=== PATIENT | male | born 1940 | race Hispanic/Latino ===

== ENCOUNTER 2019-05-29 16:51 | Observation (INO) | payer OTHER ==
[~2019-05-29] VITALS: Ht 172.7 cm; Wt 83.9 kg
[~2019-05-29 16:51] MED LIST: ALENDRONATE SOD70 MG PO; DOXAZOSIN MESYLA2 MG PO; FINASTERIDE5 MG PO; FUROSEMIDE20 MG PO; POTASSIUM CHLO20 ME1 PO; PRAVASTATIN SOD40 MG PO; PREDNISONE20 MG PO
[2019-05-29 17:32] LABS: BASOPHILS % 0.1 % (0.0-1.0); HEMATOCRIT 41.7 % (38.2-49.6); HEMOGLOBIN 13.9 g/dL (14.0-18.0); LYMPHOCYTES # (AUTO) 0.7 (1.0-3.2); LYMPHOCYTES % 8.8 % (18.0-39.1); MEAN CORPUSCULAR HEMOGLOBIN 33.8 pg (28-32); MEAN CORPUSCULAR HGB CONC 33.3 g/dL (31-35); MEAN CORPUSCULAR VOLUME 101.5 fL (81-99); MONOCYTES # (AUTO) 0.4 (0.2-0.8); NEUTROPHILS # (AUTO) 6.6 (2.1-6.9); NEUTROPHILS % 84.8 % (38.7-80.0); RED BLOOD COUNT 4.11 x10e6/uL (4.3-5.7); RED CELL DISTRIBUTION WIDTH 14.6 % (11.7-14.4)
[2019-05-29 17:34] LABS: PLATELET COUNT 64 x10e3/uL (140-360)
[2019-05-29 17:52] LABS: ALANINE AMINOTRANSFERASE 24 IU/L (0-55); ALBUMIN 3.7 g/dL (3.5-5.0); ALBUMIN/GLOBULIN RATIO 1.3 (0.8-2.0); ALKALINE PHOSPHATASE 43 IU/L (40-150); ANION GAP 14.5 mmol/L (8-16); BLOOD UREA NITROGEN 23 mg/dL (7-26); BUN/CREATININE RATIO 27 (6-25); CALCIUM 9.8 mg/dL (8.4-10.2); CARBON DIOXIDE 28 mmol/L (22-29); CHLORIDE 103 mmol/L (98-107); CREATINE KINASE 37 IU/L (30-200); CREATININE, SERUM 0.84 mg/dL (0.72-1.25); EST GLOMERULAR FILTRATION RATE > 60 ML/MIN (60-); GLUCOSE 119 mg/dL (74-118); MAGNESIUM 2.1 MG/DL (1.3-2.1); POTASSIUM 4.5 mmol/L (3.5-5.1); SODIUM 141 mmol/L (136-145)
--- NOTE | 2019-05-29 18:13 | Diagnostic Imaging Report ---
EXAMINATION: CHEST SINGLE (PORTABLE) INDICATION: Extremely confused. COMPARISON: None FINDINGS: TUBES and LINES: None. LUNGS: Lungs are not well inflated. There are bibasilar atelectasis left greater than right. There is no evidence of pneumonia or pulmonary edema. PLEURA: No pleural effusion or pneumothorax. HEART AND MEDIASTINUM: The cardiomediastinal silhouette is unremarkable. BONES AND SOFT TISSUES: No acute osseous lesion. Soft tissues are unremarkable. UPPER ABDOMEN: No free air under the diaphragm. IMPRESSION: Bibasilar atelectasis Signed by: Dr. Cassandra Muñoz M.D. on 05/29/2019 6:10 PM
--- NOTE | 2019-05-29 18:16 | Diagnostic Imaging Report ---
History: Confusion Comparison studies: None Technique: Axial images were obtained from the skull base to the vertex. Coronal and sagittal images reconstructed from the axial data. Dose modulation, iterative reconstruction, and/or weight based adjustment of the mA/kV was utilized to reduce the radiation dose to as low as reasonably achievable. Intravenous contrast: None Findings: Scalp/skull: No abnormalities. Extra-axial spaces: No masses. No fluid collections. Brain sulci: Moderately prominent. Ventricles: Moderate compensatory dilatation. No hydrocephalus. Parenchyma: Ill-defined, confluent hypodensities in the supratentorial white matter are small vessel ischemic changes. No masses, hemorrhage, acute or chronic cortical vascular insults. Sellar/suprasellar region: No abnormalities. Craniocervical junction: Patent foramen magnum. No Chiari one malformation. Incidental findings: Atherosclerotic calcifications in the carotid siphons and left vertebral artery. Single punctate dystrophic right parietal calcification without surrounding edema (supra marginal gyrus) Impression: No acute abnormalities. Chronic findings: 1. Moderate generalized volume loss. 2. Moderate supratentorial white matter small vessel ischemic changes. 3. Incidental single right parietal dystrophic calcification Signed by: Dr. Rodriguez Abrams M.D. on 05/29/2019 6:12 PM
[2019-05-29 18:30] LABS: BILIRUBIN,URINE NEGATIVE (NEGATIVE); CLARITY,URINE SL CLOUDY (CLEAR); COLOR,URINE YELLOW (YELLOW); KETONES,URINE NEGATIVE (NEGATIVE); LEUKOCYTE ESTERASE ,URINE NEGATIVE (NEGATIVE); NITRITE,URINE NEGATIVE (NEGATIVE); PROTEIN,URINE DIPSTICK NEGATIVE (NEGATIVE); URINE UROBILINOGEN 0.2 mg/dL (0.2 - 1)
[2019-05-29 18:44] LABS: BACTERIA,URINE FEW /HPF
[2019-05-29 18:45] LABS: MUCUS,URINE FEW (RARE)
--- OUTSIDE RECORDS SUMMARY | 2019-05-29 18:57 | XMS REPORT ---
[facility] Address Unknown Phone Unavailable Care Team Providers Care Finance Broker Name Role Phone LANE AMIN Unavailable Unavailable Problems This patient has no known problems. Allergies, Adverse Reactions, Alerts This patient has no known allergies or adverse reactions. Medications This patient has no known medications. Results Test Description Test Time Test Comments Text Results Atomic Results Result Comments CT BRAIN WO 2019-05-29 18:10:00 [place] [address] Patient Name: MARY YOON MR #: [id number] : 1940 Age/Sex: 78/M Req #: [id number] Adm Physician: Ordered by: PAVEL WOOD SOCIAL SERVICES TECHNICIAN Report #: [id number] Location: ER Room/Bed: Procedure: [id number] CT/CT BRAIN WO Exam Date: 05/29/19 Exam Time: 1755 REPORT STATUS: Signed History: Confusion Comparison studies: None Techn ique: Axial images were obtained from the skull base to the vertex. Coronal and sagittal images reconstructed from the axial data. Dose modulation, iterative reconstruction, and/or weight based adjustment of the mA/kV was utilized to reduce the radiation dose to as low as reasonably achievable. Intravenous contrast: None Findings: Scalp/skull: No abnormalities. Extra-axial spaces: No masses. No fluid collections. Brain sulci: Moderately prominent. Ventricles: Moderate compensatory dilatation. No hydrocephalus. Parenchyma: Ill-defined, confluent hyp odensities in the supratentorial white matter are small vessel ischemic changes. No masses, hemorrhage, acute or chronic cortical vascular insults. Sellar/suprasellar region: No abnormalities. Craniocervical junction: Patent foramen magnum. No Chiari one malformation. Incidental findings: Atherosclerotic calcifications in the carotid siphons and left vertebral artery. Single punctate dystrophic right parietal calcification without surrounding edema (supra marginal gyrus) Impression: No acute abnormalities. Chronic findings: 1. Moderate generalized volume loss. 2. Moderate supratentorial white matter small vessel ischemic changes. 3. Incidental single right parietal dystrophic calcification Signed by: Dr. Rodriguez Abrams M.D. on 05/29/2019 6:12 PM Dictated By: RODRIGUEZ COLE MD, MD 11 Transcribed By: GENNY on 05/29/191811 COPY TO: PAVEL WOOD NP CHEST SINGLE (PORTABLE) 2019-05-29 18:08:00 [place] [address] Patient Name: MARY YOON MR #: [id number] : 1940 Age/Sex: 78/M Req #: [id number] Adm Physician: Ordered by: PAVEL WOOD NP Report #: [id number] Location: ER Room/Bed: Procedure: [id number] DX/CHEST SINGLE (PORTABLE) Exam Date: 05/29/19 Exam Time: 1750 REPORT STATUS: Signed EXAMINATION: CHEST SINGLE (PORTABLE) YEYO CATION: Extremely confused. COMPARISON: None FINDINGS: TUBES and LINES: None. LUNGS: Lungs are not well inflated. There are bibasilar atelectasis left greater than right. There is no evidence of pneumonia or pulmonary edema. PLEURA: No pleural effusion or pneumothorax. HEART AND MEDIASTINUM: The cardiomediastinal silhouette is unremarkable. BONES AND SOFT TISSUES: No acute osseous lesion. Soft tissues are unremarkable. UPPER ABDOMEN: No free air under the diaphragm. IMPRESSION: Bibasilar atelectasis Signed by: Dr. Cassandra Mendez M.D. on 05/29/2019 6:10 PM Dictated By: LUCIA MENDEZ MD, MD 09 Transcribed By: GENNY on 05/29/191809 COPY TO: PAVEL WOOD NP
[2019-05-29] MEDS ORDERED: ASPIRIN 81 MG CHEW TAB PO ONE (19:15)
[2019-05-29 20:04] VITALS: BP 172/76
--- NOTE | 2019-05-29 20:23 | NUR ---
Message left on Dr. Flowers's voicemail regarding consult.
[2019-05-29 21:00] VITALS: BP 172/76
[2019-05-29] MEDS: DOXAZOSIN MESYLATE 2 MG TAB PO SCH (21:30)
[2019-05-30] VITALS (9 sets, daily range): BP systolic 122–185; BP diastolic 62–80
[2019-05-30] MEDS: LABETALOL HCL 5 MG/ML 20ML VIAL IV PRN ×2 (00:22→08:54)
[2019-05-30 04:37] LABS: CREATINE KINASE MB 1.3 ng/mL (0-5.0)
--- NOTE | 2019-05-30 07:00 | NUR ---
Walking rounds and report given to oncoming nurse. Call tillman within reach.
[2019-05-30] MEDS ORDERED: POTASSIUM CHLORIDE 20 MEQ TAB CR PO SCH (09:00)
[2019-05-30] MEDS: FUROSEMIDE 20 MG TAB PO SCH ×2 (10:29→16:05)
--- NOTE | 2019-05-30 13:03 | Diagnostic Imaging Report ---
EXAMINATION: MRI of the brain without contrast. HISTORY: Severe confusion, alteration of consciousness. COMPARISON: Head CT 05/29/2019 TECHNIQUE: Sagittal T2; axial DWI, T2, FLAIR, T1-IR, T2 gradient echo; coronal FLAIR. IMAGE QUALITY: Adequate. FINDINGS: Parenchyma: 1. Persistent moderate confluent periventricular and yu radiata white matter T2 and FLAIR hyperintense foci, most likely nonspecific chronic microvascular ischemic changes. 2. Small chronic lacunar infarct in the right thalamocapsular region. 3. No mass, hemorrhage, acute or chronic cortical infarct. Skull: Unremarkable. Vessels: Expected flow voids present in the major arteries and dural sinuses. Extra-axial spaces: No abnormal signal intensity or mass effect. Brain volume: Mild to moderate generalized brain volume loss without disproportionate lobar atrophy. Ventricles: No hydrocephalus or displacement. Foramen magnum: Unremarkable. Sella: Unremarkable. Paranasal / mastoid sinuses: Minimal partial opacification of the left mastoid air cells, likely minimal effusion, otherwise clear bilaterally. IMPRESSION: 1. No acute infarcts. 2. Stable moderate chronic microvascular ischemic changes compared to head CT of 05/29/2019. Signed by: Dr. Roberta Small M.D. on 05/30/2019 1:00 PM
[2019-05-30 14:01] LABS: CREATINE KINASE MB 1.6 ng/mL (0-5.0)
--- NOTE | 2019-05-30 15:42 | NUR ---
Recvd patient from OBS, Alert with no distress, bed in lowest position, call light in reach, bed alarm ON, [employer] bed side
--- NOTE | 2019-05-30 19:45 | NUR ---
PATIENT RECEIVED. PATIENT IS AAOX3. RESP EVEN AND UNLABORED. NO ACUTE DISTRESS NOTICED. PATIENT DENIES OF ANY PAIN OR DISCOMFORT. FAMILY AT BED SIDE. CALL LIGHT WITHIN REACH. INSTRUCT TO CALL FOR ASSISTANCE. BED LOW/LOCKED. BED ALARM IS ON. CONTINUE TO MONITOR CLOSELY
[2019-05-30 19:59] LABS: FOLATE 18.1 ng/mL (7.0-15.4)
[2019-05-30] MEDS: DOXAZOSIN MESYLATE 2 MG TAB PO SCH (20:09)
[2019-05-30] MEDS ORDERED: PRAVASTATIN 20 MG TAB PO SCH (21:00)
[2019-05-30] MEDS ORDERED: HYDRALAZINE HCL 25 MG TAB PO PRN (21:00)
[2019-05-30] MEDS ORDERED: FINASTERIDE 5 MG TAB PO SCH (21:00)
[2019-05-30] MEDS ORDERED: AMLODIPINE BESYLATE 5 MG TAB PO ONE (21:45)
--- NOTE | 2019-05-31 01:28 | Consultation ---
DATE OF CONSULTATION: 05/30/2019 Neurology Consult Note HISTORY OF PRESENT ILLNESS: Mr. Clark is an 78-year-old right-hand dominant man with past medical history significant for hypertension, hyperlipidemia, prior history of diabetes mellitus, admitted to [facility] under observation status on May 29, 2019, for confusion. The patient's family members, who are at bedside and provided the majority of the medical history, report worsening of the patient's baseline confusion beginning on Monday, May 27, 2019, According to the patient's , Mr. Clark was always oriented to self, place, and family members (i.e. his ). He has not been oriented to time, but this is chronic. When asked to give examples of the patient's confusion, the patient's reports at one point over the preceding 48 hours, the patient went to the restroom during the night. After he had been gone for some time, the patient's went to the restroom to look on Mr. Clark. Mr. Clark was sitting on the toilet in the dark. He had finished using the restroom, but did not get up to come back to bed. Another time, Mr. Clark was told by his to go shave prior to his appointment with the dentist. Mr. Clark agreed he needed to shave, but never did so. The patient's family members do report Mr. Clark has become more forgetful. This has progressively worsened over the past 1-2 years. In the recent past, the patient became significantly confused and poorly responsive when he developed a febrile illness. Once this illness was treated, the patient did return to his neurological baseline. Mr. Clark's family does not report recent signs or symptoms of illness. Specifically, they do not report fevers, chills, shortness of breath, productive cough, abdominal pain, nausea, vomiting, diarrhea, burning with urination, urinary frequency, or urinary urgency. There have been no recent changes in the patient's medications. Mr. Clark does not consume alcohol. Of note, the patient's reports Mr. Clark is significantly improved over the last 24 hours. At present, he is at his neurological baseline. REVIEW OF SYSTEMS: Joint pain, confusion, recent fall. Otherwise, a 12-point review of systems is negative. PAST MEDICAL HISTORY: Hypertension, hyperlipidemia, prior history of diabetes mellitus, prior history of COPD, prior history of asthma, osteoarthritis, osteoporosis, benign prostatic hypertrophy, thrombocytopenia. PAST SURGICAL HISTORY: Partial colectomy for a benign tumor/appendectomy, repair of a deviated septum, bilateral cataract removal, procedure for varicose veins. PAST HOSPITALIZATIONS: Surgeries/procedures as listed. FAMILY MEDICAL HISTORY: Coronary artery disease. The patient has a brother who is from metastatic throat cancer. A sister is alive, but is being treated for eye cancer. SOCIAL HISTORY: Mr. Clark is . He is retired. The patient does report a prior history of tobacco use, but quit smoking cigarettes approximately 40+ years ago. As a young man, Mr. Clark was known to drink heavily, but he has not consumed alcohol in approximately 40+ years. There is no reported current or prior recreational drug use. HOME MEDICATIONS: Alendronate 70 mg by mouth as needed, doxazosin 1 mg by mouth at bedtime daily, finasteride 5 mg by mouth at bedtime daily, furosemide 20 mg by mouth twice daily, potassium chloride 20 mEq by mouth daily, pravastatin 40 mg by mouth at bedtime daily, prednisone 20 mg by mouth daily. HOSPITAL MEDICATIONS: Doxazosin, finasteride, furosemide, labetalol, pravastatin, potassium chloride. ALLERGIES: NO KNOWN DRUG ALLERGIES. NO KNOWN FOOD ALLERGIES. NO KNOWN ALLERGY TO LATEX. THE PATIENT DOES REPORT A SENSITIVITY TO ADHESIVE. NO KNOWN ALLERGIES TO IODINE OR OTHER CONTRAST MATERIALS. PHYSICAL EXAMINATION: VITAL SIGNS: Height 68 inches, weight 185 pounds, BMI 28.1 kg/m2, blood pressure 150/70 mmHg, pulse 68 beats per minute, respiratory rate 20 breaths per minute, and oxygen saturation 98% on room air. GENERAL: The patient is awake and alert, does not appear distressed. Overweight. HEENT: Normocephalic, atraumatic. Pupils are surgical. NECK: Supple. No appreciable thyromegaly. No appreciable carotid bruits. CARDIOVASCULAR: S1, S2, regular rate and rhythm. No murmurs, rubs, or gallops. RESPIRATORY: Clear to auscultation bilaterally. No wheezes, rhonchi, or rales. EXTREMITIES: The skin is warm and dry. No clubbing, cyanosis, or edema. The posterior tibial and dorsalis pedis pulses are 1+ and symmetric. SKIN: No rashes or lesions. NEUROLOGIC: Memory/Attention: The patient is awake and alert, oriented to person, place (hospital, city, state), time (date, month), and minimally to situation. Cranial Nerves: Cranial nerve I - not tested. Cranial nerve II, III, IV, and - pupils are surgical. Extraocular movements intact. No nystagmus. Cranial nerve V - sensation to light touch is intact in the bilateral V1 through V3 distributions. Strength in the temporalis and masseter muscles is within normal limits. Cranial nerve VII - the face is symmetric as are all facial movements. Strength is within normal limits. Cranial nerve VIII - hearing is diminished to finger rub bilaterally. Cranial nerve IX, X - the soft palate elevates equally and symmetrically. Cranial nerve XI - normal strength of the bilateral sternocleidomastoid and trapezius muscles. Cranial nerve XII - the tongue protrudes midline and moves symmetrically from [id number]. Strength: Bulk is normal. Strength is 5/5 in the bilateral deltoids, biceps, triceps, wrist flexors and extensors, finger flexors and extensors, intrinsic hand muscles, hip flexors, knee flexors and extensors, ankle dorsiflexion and plantar flexion, and intrinsic foot muscles. Tone is normal. DTRs: Deep tendon reflexes are 1+ and symmetric at the triceps, biceps, and brachioradialis. Deep tendon reflexes are trace and symmetric at the patellas. Deep tendon reflexes are absent and symmetric at the Achilles. Plantar responses are flexor bilaterally. Sensation: Sensation is intact to light touch and pinprick in both arms and both legs. Cerebellar: [id number] and heel-sheppard movements are intact without dysmetria or other impairment. Gait: Deferred. Speech: Spontaneous speech is normal without appreciable dysarthria or aphasia. Repetition is intact. Involuntary Movements: None. Pronator Drift: None. LABORATORY DATA: A comprehensive metabolic panel is significant only for an elevated BUN to creatinine ratio of 27 and an elevated serum glucose of 119. Ammonia 56. Cardiac enzymes are negative x3. The CBC with differential and platelets revealed a white blood cell count of 7.81 with a left shift with 84.8% neutrophils, 8.8% lymphocytes, 5.0% monocytes, 0.0% eosinophils, and 0.1% basophils. The hemoglobin and hematocrit are 13.9 and 41.7, respectively. The platelet count is 64. A urinalysis reveals slightly cloudy urine with few urine bacteria and few urine mucus. A urine culture collected on May 29, 2019, reveals no growth at 18 to 24 hours. DIAGNOSTIC STUDIES: Electrocardiogram 05/29/2019: Normal sinus rhythm at 70 beats per minute. Left axis deviation. Right bundle-branch block. Left ventricular hypertrophy. Widened QRS. Chest x-ray 05/29/2019: Bibasilar atelectasis. CT of the brain without contrast 05/29/2019: On my review, there is no evidence of recent large territorial ischemia, hemorrhage, mass, or mass effect. There is moderate diffuse cerebral atrophy with compensatory dilatation of the ventricles, more than expected for the patient's age. Their findings are compatible with moderate chronic small vessel ischemic disease. MRI of the brain without contrast 05/30/2019: On my review, there is no evidence of recent large territorial ischemia, hemorrhage, mass, or mass effect. A chronic lacunar infarct is seen in the right thalamocapsular region. There is moderate diffuse cerebral atrophy with compensatory dilatation of the ventricles, more than expected for the patient's age. There is no lobar dominance. There are scattered T2/FLAIR hyperintense foci in the supratentorial and infratentorial white matter compatible with moderate chronic small vessel ischemic disease. ASSESSMENT AND PLAN: Mr. Clark is an 78-year-old right-hand dominant man with past medical history as detailed admitted to [facility] under observation status on May 29, 2019, with worsening confusion for 2 days, which has since significantly improved/resolved. Other than disorientation to time and situation and diminished deep tendon reflexes in the gradient distribution, Mr. Clark's neurological examination is nonfocal. His laboratory data and other diagnostic studies have been reviewed and are documented above. At present, the etiology of the patient's recently worsened confusion is unknown. Additional laboratory data and other diagnostic studies will be ordered to evaluate for a possible cause of the patient's recently worsened confusion. However, given the patient's history of progressive forgetfulness and disorientation to time for the past 1-2 years, as well as the findings on his neuro imaging studies, I strongly suspect Mr. Clark has dementia, probably secondary to vascular disease, although Alzheimer disease cannot be absolutely excluded. RECOMMENDATIONS: As follows: 1. Additional laboratory data will be ordered as follows: TSH, vitamin B1 level, vitamin B6 level, vitamin B12 level, methylmalonic acid, folate, RPR, and blood cultures x2. The results of these studies as well as the urine culture will be followed. 2. A routine EEG will be ordered to evaluate for subclinical seizure. 3. Limit treatment with sedative/hypnotic and pain medications as these will alter the patient's sensorium. 4. Utilize environmental cues to prevent delirium. 5. Defer treatment of the remaining medical comorbidities to the primary and other services following the patient. 6. Anticipated discharge: Home with family in 2-3 days. Thank you for this consultation. I will continue to follow the patient while he remains in the hospital. TIME SPENT: 50 minutes. Dolly Flowers MD CP/ANNEL /[id number] FAISAL
[2019-05-31 04:00] VITALS: BP 116/69
[2019-05-31 07:27] VITALS: BP 116/77
[2019-05-31] MEDS ORDERED: ALENDRONATE SODIUM 70 MG TAB PO SCH (08:00)
[2019-05-31 08:05] VITALS: BP 116/77
[2019-05-31] MEDS ORDERED: ASPIRIN 81 MG ENTERIC COATED PO SCH (09:00)
[2019-05-31] MEDS ORDERED: AMLODIPINE BESYLATE 5 MG TAB PO SCH (09:00)
--- NOTE | 2019-05-31 09:43 | NUR ---
Patient resting in bed, alert with no distress, family at bed side, , Dr Bell here for rounds
[2019-05-31 11:23] VITALS: BP 94/48
--- NOTE | 2019-05-31 13:32 | NUR ---
Dr Flowers here for rounds. stated patient can be discharged
--- NOTE | 2019-05-31 14:07 | NUR ---
Patient discharged home, IV canula removed with tip intact, no ss of infiltration, patient not in any distress or confusion, AA0x3 This time. at bed side, transported via wheelchair to [facility]
--- NOTE | 2019-05-31 16:26 | History and Physical ---
PRIMARY CARE PHYSICIAN: Joe Shepherd MD. FIELD CONTACT PERSON: Dolly Flowers MD. The patient was first admitted to Dr. Aime Cooley, now changed to my service due to insurance coverage. CHIEF COMPLAINT: Altered mental status, sent into the emergency room by primary care physician. HISTORY OF PRESENT ILLNESS: This is an 78-year-old male. I had a long discussion with the patient's spouse today and apparently through baffle installer, the patient has progressive memory loss for the past years and worsened recently. The patient is otherwise without any complaint of any focal weakness, although he is progressively with memory loss, confusion, and required a lot of care by spouse at home. The patient is otherwise stable. He had a CT scan of the brain that was done showed chronic ischemic vascular condition, but without any mass. The patient subsequently had an MRI of the brain done showed pretty much the same. The patient is otherwise stable. He has no complaints. He is stable lying in bed and he is getting an EEG at this time. PAST MEDICAL HISTORY: Hypertension, dyslipidemia, diabetes type 2, COPD, asthma, osteoarthritis, osteoporosis, enlarged prostate, chronic thrombocytopenia on steroids, prednisone. PAST SURGICAL HISTORY: Partial colectomy for benign tumor, appendectomy, repair of nasal deviated septum, bilateral cataract removal, and varicose vein to lower extremity. SOCIAL HISTORY: The patient lives with his , very supportive family. ALLERGIES: NO KNOWN ALLERGIES. HOME MEDICATIONS: List is reviewed. REVIEW OF SYSTEMS: The patient does not have any chest pain or shortness of breath. No abdominal pain. Moving all extremities. PHYSICAL EXAMINATION: VITAL SIGNS: Temperature is 98, blood pressure 116/77, pulse rate is 73, and respirations 16. GENERAL: The patient is in no acute distress. HEENT: Normocephalic and atraumatic. Pupils reactive. Anicteric. NECK: Supple grossly. PULMONARY: Clear. CARDIOVASCULAR: Regular rate and rhythm. ABDOMEN: Soft and unremarkable. EXTREMITIES: No cyanosis or edema. NEUROLOGIC: The patient is confused, but without any focal deficit. Moving all extremities. DIAGNOSTIC DATA: MRI, no acute infarct. Stable moderate chronic microvascular ischemic changes. Chest x-ray is bibasilar atelectasis without infiltrate. LABORATORY DATA: Laboratories showed WBC 7.8, hemoglobin 13.9, hematocrit 41.7, and platelet is 64, chronically low platelets. Sodium is 141, potassium 4.5, chloride 103, bicarb 20, BUN 23, creatinine 0.8, and glucose is 119. Ammonia level is 56, which is normal. Folic acid is 18, B12 is 1093, and TSH is 1.8. IMPRESSION: 1. Progressive vascular dementia, most likely. 2. Multiple chronic baseline problems. I discussed with the patient's spouse at length at bedside through baffle installer. Signs and symptoms consistent with progressive vascular dementia. Dr. Flowers is on the case. EEG is now pending. The patient will continue with his diagnosis test at this time. MD ZACK Kapadia/MODL /[id number]
--- NOTE | 2019-05-31 18:11 | Electroencephalogram ---
DATE OF STUDY: 05/31/2019 REQUESTING PHYSICIAN: REQUESTING PHYSICIAN: Dolly Flowers MD. PATIENT HISTORY: This 78-year-old man with a history of confusion is having an EEG for evaluation of epileptiform activity. The patient is not taking any medications which might affect the EEG. TECHNIQUE: This is a routine, portable EEG, recorded digitally, using the International 10/20 electrode placement system, and done in the inpatient setting with the patient awake and drowsy. Portions of the EEG are obscured by muscle and electrical artifact. DESCRIPTION: Well-organized, well-sustained, 7-8 hertz activity is best seen symmetrically over the posterior head regions. No focal or epileptiform activity is recorded. Sleep is not recorded. Photic stimulation does produce a driving response. Hyperventilation is not performed. INTERPRETATION: This EEG is abnormal due to diffuse slowing of background electrocortical activity compatible with a mild generalized encephalopathy. No epileptiform discharges are seen. Clinical correlation is recommended. Dolly Flowers MD CP/MODL /[id number] MTDD
--- NOTE | 2019-06-01 07:25 | Discharge Summary ---
The patient placed on observation. PRIMARY CARE PHYSICIAN: Dr. Joe Shepherd. STOCK FITTER: Dr. Dolly Flowers. FINAL DIAGNOSES: 1. Vascular dementia. The patient has negative workup. MRI of the brain showed stable moderate chronic microvascular ischemic changes compared to head CT of May 29, 2019. 2. Baseline multiple medical problem. SUMMARY: An 78-year-old male with some confusion. The patient had a complete workup. He has MRI without an acute finding. CT scan and chest x-ray otherwise unremarkable. MRI is negative. The patient has a B12 level of 1093, folate is 18.1, TSH is 1.8. The patient has laboratory workup including chemistry panel that was normal. Sodium is 141, potassium 4.5, chloride 103, bicarb 28, BUN 23, creatinine 0.8, glucose is 119. Urinalysis is slightly cloudy, but no wbc. WBC 7.8, hemoglobin 13.9, hematocrit 41.7, and platelets 64 with thrombocytopenia. The patient is otherwise stable. He is comfortable overall. He has no complaint. The patient should be able to go home today. Follow up as an outpatient. We will get in contact with Dr. Joe Shepherd. The patient has a negative altered mental status workup. The patient is otherwise stable. MD ZACK Kapadia/ANNEL /[id number]
== END 2019-05-31 14:00 | disposition home or self-care (01) ==
LOC: ER 16:51 → ERHOLD 18:54 → IMCU 20:25 → MED/SURG2 05-30 15:40
PROVIDERS: ADMIT Internal Medicine; ATTEND Internal Medicine
DX: F01.50 Vascular dementia, unspecified severity, without behavioral disturbance, psychotic disturbance, mood disturbance, and anxiety (principal); I10 Essential (primary) hypertension; E78.5 Hyperlipidemia, unspecified; E11.9 Type 2 diabetes mellitus without complications; J44.9 Chronic obstructive pulmonary disease, unspecified; M19.90 Unspecified osteoarthritis, unspecified site; M81.0 Age-related osteoporosis without current pathological fracture; N40.0 Benign prostatic hyperplasia without lower urinary tract symptoms
CPT/HCPCS: 36415 ×3; 70450; 70551; 71045; 80053; 81001; 82140; 82550 ×2; 82553 ×2; 82607; 82746; 82948 ×3; 83735; 83921; 84207; 84425; 84443; 84484 ×2; 85025; 87040; 87086 ×2; 93005; 95816; 97116; 97161; 99284; G0378 ×3; J3490